=== PATIENT | male | born 1985 | race Caucasian/White ===

== ENCOUNTER 2016-03-12 20:27 | Emergency (ER) | payer BC ==
[~2016-03-12] VITALS: Ht 175.3 cm; Wt 75.4 kg
[2016-03-12 20:36] VITALS: TEMP 37; Ht 175.3 cm; Wt 75.4 kg
--- NOTE | 2016-03-12 23:22 | EMERGENCY ROOM VISIT NOTE ---
History First contact with patient: 20:44 Chief Complaint: OTHER COMPLAINT Stated Complaint: POSSIBLY SWALLOWED TOOTHPICK, NO SYMPTOMS YET History of Present Illness The patient is a 30 year old male who presents to the Emergency Room via private vehicle with complaints of "possibly swallowed toothpick, no symptoms at ". The patient states that one to one half hours prior to arrival he was dining and consuming beverages when one particular appetizer was boateng wrapped shrimp. He states that he ate one and it seemed tough and then went to eat another one but realized that they were held together with a toothpick. He then became concerned that he may have swallowed a toothpick even know that he did not feel any pain or symptoms as if he did. He states that he googled potential complications of this and became concerned. He states the length of the toothpick is 2 inches maximum. It was 1 toothpick potentially. He does not know if he consumed toothpick or not. He denies any pain with swallowing and no symptoms. He does not take any anticoagulants, does not have any history of esophageal varices and denies any cough or coughing up blood. Review of Systems A complete 6-point Review of Systems was discussed with the patient, with pertinent positives and negatives listed in the History of Present Illness. All remaining Review of Systems questions can be considered negative unless otherwise specified. Past Medical/Surgical History Skin problems, asthma, knee surgery 2004. Family History Unremarkable Social History Smoking Status: Former Smoker Social History: Patient lives at home with , used to consume tobacco products and admits to alcohol products. Current/Historical Medications No Active Prescriptions or Reported Meds Allergies Coded Allergies: No Known Allergies (Unverified , 03/12/16) Physical Exam Vital Signs Date Time Temp Pulse Resp B/P Pulse Ox O2 Delivery O2 Flow Rate FiO2 03/12/16 23:25 69 18 119/78 96 03/12/16 22:46 58 18 104/78 98 Room Air 03/12/16 20:36 37.0 77 20 146/93 95 Physical Exam VITAL SIGNS - Vital signs and nursing notes were reviewed. GENERAL -30-year-old male appearing his stated age who is in no acute distress. Communicates well with provider and answers questions appropriately. SKIN - Without rashes. No evidence of break in the integument. HEAD - NC/AT. EYES - Sclera anicteric. Palpebral conjunctiva pink and moist with no injection noted. EARS - No deformities of external structures noted on gross examination bilaterally. NOSE - Midline and without cyanosis. No epistaxis or purulent drainage noted. MOUTH/OROPHARYNX - Without perioral cyanosis. NECK - Neck with FROM. Supple to palpation. No lymphadenopathy noted. No nuchal rigidity. No tenderness. LUNGS - Chest wall symmetric without accessory muscle use, intercostals retractions, or central cyanosis. Normal vesicular breath sounds CTA B/L. No wheezes, rales, or rhonchi appreciated. CARDIAC - RRR with S1/S2. No murmur, rubs, or gallops appreciated. ABDOMEN - Abdominal contour without pulsations or visible masses. BS normoactive all four quadrants. No tenderness, palpable masses, hepatosplenomegaly, or ascites noted. PSYCH - Pt is very pleasant and interacts well with examiner. Medical Decision & Procedures Medical Decision Patient was seen and evaluated as above. After obtaining a thorough history and physical examination patient appears clinically well. He is afebrile, he is slightly hypertensive at 146/93, he is not tachycardic and is saturating well on room air 95%. He is nontoxic in appearance. He says he is concerned and perhaps paranoid because he searched on Google the potential complications of swallowing a toothpick. I informed him that we could do imaging but the object is not radiopaque and without symptoms I felt that the risks outweighed the benefits. We both decided upon was a trial of liquids and then food. He was observed while drinking liquids for greater than 1 hour and then tried small amounts of crackers and did well without any problems. I suspect that he will pass the toothpick without difficulty. He was instructed upon worrisome symptoms in which to return. He had questions answered prior to discharge and was discharged home in good condition. In the evaluation and treatment of this patient the following differential diagnoses were entertained: Swallowed foreign body, among others. Impression Primary Impression: Swallowed foreign body Departure Information Dispostion Home / Self-Care Condition GOOD Prescriptions No Active Prescriptions or Reported Meds Referrals No Doctor, Assigned (PCP) Patient Instructions My [facility] Additional Instructions You were seen in the ER for suspected foreign body swallowing. We were not able to find any complications at this time. Please call you family doctor following todays visit for follow up. Please return to the emergency department with any new/concerning symptoms. Problem Qualifiers Primary Impression: Swallowed foreign body Encounter type: initial encounter Qualified Codes: T18.9XXA - Foreign body of alimentary tract, part unspecified, initial encounter
[2016-03-12 23:25] VITALS: BP 119/78; PULSE 69; O2SAT 96
== END 2016-03-12 23:25 | disposition home or self-care (01) ==
LOC: C.EDB 20:30 → C.EDD 23:25
DX: T18.9XXA Foreign body of alimentary tract, part unspecified, initial encounter (principal); X58.XXXA Exposure to other specified factors, initial encounter; J45.909 Unspecified asthma, uncomplicated; Z98.890 Other specified postprocedural states; Z87.891 Personal history of nicotine dependence